=== PATIENT | male | born 1980 | race Caucasian/White ===

== ENCOUNTER 2019-11-09 13:41 | Emergency (ER) | payer BC, OTHER ==
[2019-11-09] MEDS ORDERED: Sodium Chloride 0.9% 2.5 ML Syringe FLUSH PRN (14:36)
[2019-11-09] MEDS ORDERED: Sodium Chloride 0.9% 10 ML Syringe FLUSH PRN (14:36)
[2019-11-09] MEDS ORDERED: Acetaminophen 500 MG Tab PO ONE (14:36)
[2019-11-09] MEDS ORDERED: Ibuprofen 400 MG Tab PO ONE (14:36)
--- NOTE | 2019-11-09 14:47 | EDM.PDOC ---
ED HPI GENERAL MEDICAL PROBLEM - General Chief Complaint: Respiratory Problem Stated Complaint: SOB COUGH FEVER Time Seen by Provider: 11/09/19 13:47 Source of Information: Reports: Patient, Police History Limitations: Reports: No Limitations - History of Present Illness INITIAL COMMENTS - FREE TEXT/NARRATIVE: 39-year-old male with a past medical history of Gilbert syndrome, hypertension, and hypothyroidism presenting with infectious symptoms. Patient reports a 2-day history of subjective fever, nonproductive cough, chills, back pain, and malaise. He works as a travel nurse. He is traveling with his spouse who is also a healthcare worker and she is also symptomatic. He reports left-sided chest pain that started about 4 hours ago, this is constant. It is not triggere d by or worse with deep breathing or coughing. Last took acetaminophen around 4:30 AM this morning. Also complains of a sore throat and occasional posttussive emesis. He denies any headache, difficulty swallowing, central chest pain, shortness of breath, abdominal pain, diarrhea, rash, neck stiffness, dysuria, urinary frequency, hematuria, or extremity edema. ROS: A 10-point review of systems was negative, except as noted in the HPI (or in the ROS section of this note). Past medical history: Reviewed, no additional pertinent history. Surgical history: Reviewed in system, no additional pertinent history. Social history: Reviewed in system, no additional pertinent history. Family history: Reviewed in system, no additional pertinent history. Limited physical examination was performed due to COVID pandemic, distance examination to prevent physician exposure and to preserve PPE. Vital signs reviewed. Nursing notes reviewed. Constitutional: Awake, alert, non-distressed. Head: Normocephalic, atraumatic. Eyes: No scleral icterus. Neck: Able to fully flex and extend. Fully rotates side to side. Cardiovascular: No extremity edema. 2+ radial pulse. Pulmonary: normal work of breathing, no accessory muscle use. Speaking in full sentences, handling secretions well. Abdomen/GI: nondistended Musculoskeletal: No deformities. Integumentary: Appropriate color for ethnicity, warm, dry, no pallor or jaundice, no rash. Neurologic: Alert, answering questions appropriately, normal speech, no facial droop, moving all extremities well. Psychiatric: Appropriate mood and affect, normal thought process. Lower Back Pain Score (Numeric/FACES): 6 - Related Data Allergies Allergy/AdvReac Type Severity Reaction Status Date / Time shellfish derived Allergy Difficulty Verified 11/09/19 14:03 Breathing Home Meds: Home Meds Levothyroxine 25 mcg PO ACBREAKFAST 11/09/19 [History] lisinopriL [Lisinopril] 5 mg PO DAILY 11/09/19 [History] Past Medical History Cardiovascular History: Reports: Hypertension Endocrine/Metabolic History: Reports: Hypothyroidism - Infectious Disease History Infectious Disease History: Reports: Chicken Pox - Past Surgical History Cardiovascular Surgical History: Reports: None Endocrine Surgical History: Reports: None Social & Family History - Family History Family Medical History: Noncontributory - Tobacco Use Smoking Status *Q: Current Every Day Smoker Years of Tobacco use: 20 Packs/Tins Daily: 0 Used Tobacco, but Quit: No Second Hand Smoke Exposure: No - Caffeine Use Caffeine Use: Reports: Coffee - Recreational Drug Use Recreational Drug Use: No ED ROS GENERAL - Review of Systems Review Of Systems: See Below ED EXAM, GENERAL - Physical Exam Exam: See Below EKG INTERPRETATION EKG Interpretation Comments: 12-Lead ECG Interpretation Acquired: 3:30 PM Rhythm: Sinus rhythm Rate: 90 bpm [place]: Normal Intervals: Normal Ectopy: None Ischemic Changes: None apparent RV Strain: No obvious RV strain pattern. ST Segments/T-Waves: Biphasic T waves in lead aVF, otherwise no abnormalities appreciated Course - Vital Signs Text/Narrative:: Patient hemodynamically stable, afebrile, well-appearing, looks nontoxic. Differential diagnosis includes but is not limited to: pneumonia, coronavirus, pneumothorax, pulmonary embolism, acute coronary syndrome, myocarditis, pleural effusion, pleurisy, sepsis, musculoskeletal pain, chest wall pain, intercostal muscle strain, etc. CBC shows mild leukocytosis, mild erythrocytosis. D-dimer negative. Troponin negative. COVID testing negative. Metabolic panel shows normal electrolytes and renal function. Mild total bilirubin elevation - patient has a history of Gilbert syndrome. Chest x-rays are clear. Twelve-lead EKG is nonischemic. No objective evidence of myocardial ischemia. Chest pain is very far lateral, at the left midaxillary line, which is not classic for an acute coronary syndrome type pattern. HEART score is 1. Pulmonary embolism is effectively ruled out with a negative d-dimer and no historical risk factors for venous thromboembolism - Wells PE score was 4.5. No evidence of a lobar infiltrate or bacterial pneumonia to warrant antibiotics. Negative troponin testing and nondiagnostic ECG argues against myopericarditis. No lower extremity edema to suggest a congestive heart failure or myocarditis diagnosis. Patient is afebrile, well-appearing, and does not appear systemically ill/septic. Presentation seems consistent with an acute viral syndrome/viral upper respiratory illness with cough. Stable to discharge home with [id number] treatments including antitussive medications, Tylenol, Motrin, p.o. fluids. Close primary care follow-up. We discussed home isolation precautions until the patient has been asymptomatic for several days given that he works as a nurse. Plan: Patient is stable to discharge home with outpatient primary care clinic follow-up. Strict emergency department return precautions were provided, patient indicated understanding. All questions were answered prior to departure. Discharged in good condition. HEART Score for Major Cardiac Events RESULT SUMMARY: 1 points Low Score (0-3 points) Risk of MACE of 0.9-1.7%. INPUTS: History > 0 = Slightly suspicious EKG > 0 = Normal Age > 0 = <45 Risk factors > 1 = 1-2 risk factors Initial troponin > 0 = ?normal limit Wells' Criteria for Pulmonary Embolism RESULT SUMMARY: 4.5 points Moderate risk group: 16.2% chance of PE in an ED population. Another study assigned scores ? 4 as PE Unlikely and had a 3% incidence of PE. Another study assigned scores > 4 as PE Likely and had a 28% incidence of PE. INPUTS: Clinical signs and symptoms of DVT > 0 = No PE is #1 diagnosis OR equally likely > 3 = Yes Heart rate > 100 > 1.5 = Yes Immobilization at least 3 days OR surgery in the previous 4 weeks > 0 = No Previous, objectively diagnosed PE or DVT > 0 = No Hemoptysis > 0 = No Malignancy w/ treatment within 6 months or palliative > 0 = No Last Recorded V/S: Last Vital Signs Temp 36.6 C 11/09/19 14:05 Pulse 89 11/09/19 14:05 Resp 18 11/09/19 14:05 BP 133/79 11/09/19 14:05 Pulse Ox 96 11/09/19 14:05 - Orders/Labs/Meds Orders: Active Orders 24 hr Category Date Time Status EKG 12 Lead [EKG Documentation Completion] [RC] STAT Care 11/09/19 14:47 Active Pulse Oximetry [RC] ASDIRECTED Care 11/09/19 14:36 Active Sodium Chloride 0.9% [Saline Flush] Med 11/09/19 14:36 Active 10 ml FLUSH ASDIRECTED PRN Sodium Chloride 0.9% [Saline Flush] Med 11/09/19 14:36 Active 2.5 ml FLUSH ASDIRECTED PRN Saline Lock Insert [OM.PC] Stat Oth 11/09/19 14:36 Ordered Medication Orders Sodium Chloride (Saline Flush) 10 ml FLUSH ASDIRECTED PRN PRN Reason: Keep Vein Open Last Admin: 11/09/19 14:42 Dose: 10 ml Documented by: BO Sodium Chloride (Saline Flush) 2.5 ml FLUSH ASDIRECTED PRN PRN Reason: Keep Vein Open Last Admin: 11/09/19 14:42 Dose: 2.5 ml Documented by: BO Labs: Laboratory Tests 11/09/19 11/09/19 11/09/19 Range/Units 14:42 14:46 14:46 WBC 11.70 H (4.0-11.0) K/uL RBC 5.36 (4.50-5.90) M/uL Hgb 17.2 H (13.0-17.0) g/dL Hct 49.8 (38.0-50.0) % MCV 92.9 (80.0-98.0) fL MCH 32.1 H (27.0-32.0) pg MCHC 34.5 (31.0-37.0) g/dL RDW Std Deviation 42.7 (28.0-62.0) fl RDW Coeff of Kofi 13 (11.0-15.0) % Plt Count 316 (150-400) K/uL MPV 11.00 (7.40-12.00) fL Neut % (Auto) 72.6 (48.0-80.0) % Lymph % (Auto) 20.4 (16.0-40.0) % [place] % (Auto) 5.9 (0.0-15.0) % Eos % (Auto) 0.8 (0.0-7.0) % Baso % (Auto) 0.3 (0.0-1.5) % Neut # (Auto) 8.5 H (1.4-5.7) K/uL Lymph # (Auto) 2.4 (0.6-2.4) K/uL [place] # (Auto) 0.7 (0.0-0.8) K/uL Eos # (Auto) 0.1 (0.0-0.7) K/uL Baso # (Auto) 0.0 (0.0-0.1) K/uL Nucleated RBC % 0.0 /100WBC Nucleated RBCs # 0 K/uL D-Dimer, Quantitative < 0.19 (0.0-0.50) mg/L FEU Sodium (136-148) mmol/L Potassium (3.5-5.1) mmol/L Chloride (98-107) mmol/L Carbon Dioxide (21.0-32.0) mmol/L BUN (7.0-18.0) mg/dL Creatinine (0.8-1.3) mg/dL Est Cr Clr Drug Dosing mL/min Estimated GFR (MDRD) ml/min Glucose (74-106) mg/dL Calcium (8.5-10.1) mg/dL Total Bilirubin (0.2-1.0) mg/dL AST (15-37) IU/L ALT (14-63) IU/L Alkaline Phosphatase (46-116) U/L Creatine Kinase (26-308) U/L Troponin I (0.000-0.056) ng/mL Total Protein (6.4-8.2) g/dL Albumin (3.4-5.0) g/dL Globulin (2.6-4.0) g/dL Albumin/Globulin Ratio (0.9-1.6) COVID-19 ([facility]) NEGATIVE (NEGATIVE) 11/09/19 Range/Units 14:46 WBC (4.0-11.0) K/uL RBC (4.50-5.90) M/uL Hgb (13.0-17.0) g/dL Hct (38.0-50.0) % MCV (80.0-98.0) fL MCH (27.0-32.0) pg MCHC (31.0-37.0) g/dL RDW Std Deviation (28.0-62.0) fl RDW Coeff of Kofi (11.0-15.0) % Plt Count (150-400) K/uL MPV (7.40-12.00) fL Neut % (Auto) (48.0-80.0) % Lymph % (Auto) (16.0-40.0) % [place] % (Auto) (0.0-15.0) % Eos % (Auto) (0.0-7.0) % Baso % (Auto) (0.0-1.5) % Neut # (Auto) (1.4-5.7) K/uL Lymph # (Auto) (0.6-2.4) K/uL [place] # (Auto) (0.0-0.8) K/uL Eos # (Auto) (0.0-0.7) K/uL Baso # (Auto) (0.0-0.1) K/uL Nucleated RBC % /100WBC Nucleated RBCs # K/uL D-Dimer, Quantitative (0.0-0.50) mg/L FEU Sodium 138 (136-148) mmol/L Potassium 3.9 (3.5-5.1) mmol/L Chloride 103 (98-107) mmol/L Carbon Dioxide 23.7 (21.0-32.0) mmol/L BUN 5 L (7.0-18.0) mg/dL Creatinine 0.8 (0.8-1.3) mg/dL Est Cr Clr Drug Dosing 119.94 mL/min Estimated GFR (MDRD) > 60.0 ml/min Glucose 100 (74-106) mg/dL Calcium 9.6 (8.5-10.1) mg/dL Total Bilirubin 1.6 H (0.2-1.0) mg/dL AST 18 (15-37) IU/L ALT 27 (14-63) IU/L Alkaline Phosphatase 70 (46-116) U/L Creatine Kinase 156 (26-308) U/L Troponin I < 0.050 (0.000-0.056) ng/mL Total Protein 7.8 (6.4-8.2) g/dL Albumin 4.3 (3.4-5.0) g/dL Globulin 3.5 (2.6-4.0) g/dL Albumin/Globulin Ratio 1.2 (0.9-1.6) COVID-19 ([facility]) (NEGATIVE) Meds: Medications Generic Name Dose Route Start Last Admin Trade Name Freq PRN Reason Stop Dose Admin Sodium Chloride 10 ml 11/09/19 14:36 11/09/19 14:42 Saline Flush FLUSH 10 ml ASDIRECTED PRN Administration Keep Vein Open Sodium Chloride 2.5 ml 11/09/19 14:36 11/09/19 14:42 Saline Flush FLUSH 2.5 ml ASDIRECTED PRN Administration Keep Vein Open Discontinued Medications Generic Name Dose Route Start Last Admin Trade Name Freq PRN Reason Stop Dose Admin Acetaminophen 1,000 mg 11/09/19 14:36 11/09/19 14:41 Tylenol Extra Strength PO 11/09/19 14:37 1,000 mg ONETIME ONE Administration Ibuprofen 400 mg 11/09/19 14:36 11/09/19 14:42 Motrin PO 11/09/19 14:37 400 mg ONETIME ONE Administration Departure - Departure Time of Disposition: 16:20 Disposition: Home, Self-Care 01 Condition: Good Clinical Impression: Acute viral syndrome, Encounter for laboratory testing for COVID-19 virus, Atypical chest pain - Discharge Information *PRESCRIPTION DRUG MONITORING PROGRAM REVIEWED*: Not Applicable *COPY OF PRESCRIPTION DRUG MONITORING REPORT IN PATIENT GREG: Not Applicable Instructions: Nonspecific Chest Pain, Adult, Viral Illness, Adult, Viral Respiratory Infection Referrals: [facility] - Family Practice [Provider Group] - 1 Week (For follow-up of illness, and for follow-up of elevated bilirubin.) Forms: ED Department Discharge Additional Instructions: You were seen in the emergency department for infectious symptoms. Your coronavirus testing is negative. Your x-rays are clear, I see no evidence of a pneumonia. Your blood work had a mildly elevated bilirubin, otherwise it was reassuring. Your troponin testing and d-dimer tests were negative. Your EKG looks reassuring. I believe that your symptoms are due to a viral upper respiratory illness/an acute viral syndrome. Treatment is symptomatic and there is no role for antibiotics at this point. I recommend [id number] cough medication such as Robitussin-DM. You can also take [id number] Tylenol and Motrin as directed on the package for body aches or fever. Be sure you are drinking plenty of fluids. You should stay home and not work until your symptoms have been totally gone and you have been feeling normal for at least 48 hours. Be sure to wear your mask and try to isolate yourself from others while you are feeling ill. You should wash your hands frequently. If you are not feeling better the next few days I encourage you to follow-up with a family medicine clinic in the area for reevaluation. Please return the emergency department immediately if your symptoms worsen or if you feel worse. Thank you for choosing the [facility] emergency department in [place] for your medical needs today. It was a pleasure caring for you. The following information is given to patients seen in the emergency department who are being discharged. This information is to outline your options for follow-up care. We provide all patients seen in our emergency department with a follow-up referral. The need for follow-up, as well as the timing and circumstances, are variable depending upon the specifics of your emergency department visit. If you don't have a primary care physician on staff, we will provide you with a referral. We always advise you to contact your personal physician following an emergency department visit to inform them of the circumstance of the visit and for follow-up with them and/or the need for any referrals to a consulting specialist. The emergency department will also refer you to a specialist when appropriate. This referral assures that you have the opportunity for follow-up care with a specialist. All of these measure are taken in an effort to provide you with optimal care, which includes your follow-up. Under all circumstances we always encourage you to contact your private physician who remains a resource for coordinating your care. When calling for follow-up care, please make the office aware that this follow-up is from your recent emergency room visit. If for any reason you are refused follow-up, please contact the [facility] Emergency Department at and asked to speak to the emergency department charge nurse. If you do not have a primary care physician that is caring for you, you can con tact these clinics below to set up an appointment to establish care: [facility] - Primary Care [address] [place] [address] [facility] [address] [place] [id number] Sepsis Event Note (ED) - Evaluation Sepsis Screening Result: No Definite Risk - Focused Exam Vital Signs: Vital Signs Temp Pulse Resp BP Pulse Ox 11/09/19 14:05 36.6 C 89 18 133/79 96 - My Orders Last 24 Hours: My Active Orders 11/09/19 14:36 Pulse Oximetry [RC] ASDIRECTED Sodium Chloride 0.9% [Saline Flush] 10 ml FLUSH ASDIRECTED PRN Sodium Chloride 0.9% [Saline Flush] 2.5 ml FLUSH ASDIRECTED PRN Saline Lock Insert [OM.PC] Stat 11/09/19 14:47 EKG 12 Lead [EKG Documentation Completion] [RC] STAT - Assessment/Plan Last 24 Hours: My Active Orders 11/09/19 14:36 Pulse Oximetry [RC] ASDIRECTED Sodium Chloride 0.9% [Saline Flush] 10 ml FLUSH ASDIRECTED PRN Sodium Chloride 0.9% [Saline Flush] 2.5 ml FLUSH ASDIRECTED PRN Saline Lock Insert [OM.PC] Stat 11/09/19 14:47 EKG 12 Lead [EKG Documentation Completion] [RC] STAT
[2019-11-09 15:40] LABS: BLOOD UREA NITROGEN,BUN 5 mg/dL (7.0-18.0); CARBON DIOXIDE,CO2 23.7 mmol/L (21.0-32.0); CHLORIDE,CL 103 mmol/L (98-107); GLUCOSE RANDOM 100 mg/dL (74-106); POTASSIUM,K 3.9 mmol/L (3.5-5.1); SODIUM,NA 138 mmol/L (136-148)
--- NOTE | 2019-11-09 16:07 | CR ---
Chest: 2 views of the chest were obtained. Comparison: No prior chest imaging. Heart size and mediastinum are normal. Lungs are clear with no acute parenchymal change. Bony structures show nothing acute. Impression: 1. Nothing acute is seen on 2 view chest x-ray. Diagnostic code #1 This report was dictated in MDT
== END 2019-11-09 16:34 | disposition home or self-care (01) ==
LOC: MW.ED 13:41
DX: B34.9 Viral infection, unspecified (principal); E03.9 Hypothyroidism, unspecified; R07.89 Other chest pain; F17.210 Nicotine dependence, cigarettes, uncomplicated; Z20.828 Contact with and (suspected) exposure to other viral communicable diseases; Z79.899 Other long term (current) drug therapy; Z91.013 Allergy to seafood
CPT/HCPCS: 36415; 71046; 80053; 82550; 84484; 85025; 85379; 87635; 93005; 99285; A9270; 99283; U0002